=== PATIENT | male | born 1990 | race African-American/Black ===

== ENCOUNTER 2024-06-16 04:07 | Emergency (ER) | payer MEDICAID ==
[~2024-06-16] VITALS: Ht 205.7 cm; Wt 124.0 kg
[2024-06-16 04:18] VITALS: O2SAT 97
[2024-06-16] MEDS: ACETAMINOPHEN 500MG TABLET PO ONE (06:55)
[2024-06-16 09:13] VITALS: BP 126/60; PULSE 73; RESP 18; TEMP 36.50292; O2SAT 100
== END 2024-06-16 09:22 | disposition home or self-care (01) ==
LOC: ER 04:07
DX: S80.02XA Contusion of left knee, initial encounter (principal); Z88.0 Allergy status to penicillin; W18.30XA Fall on same level, unspecified, initial encounter; Y93.89 Activity, other specified; Y92.89 Other specified places as the place of occurrence of the external cause; Y99.9 Unspecified external cause status
CPT/HCPCS: 73562; 99283